=== PATIENT | male | born 1960 | race Caucasian/White ===

== ENCOUNTER 2016-07-24 07:13 | Inpatient (IN) | payer OTHER ==
[~2016-07-24] VITALS: Ht 180 cm; Wt 101.0 kg
[2016-07-24 08:26] LABS: BASOPHIL 0.4 % (0-2); EOSINOPHIL 2.3 % (0-5); HCT 47.5 % (42.0-52.0); HGB 16.3 g/dl (13.2-18.0); LYMPHOCYTE 15.4 % (15-48); MCH 34.5 pg (25.0-31.0); MCHC 34.3 g/dL (32.0-36.0); MCV 100.4 fL (78.0-100.0); MONOCYTE 3.6 % (0-12); MPV 9.4 fL (6.0-9.5); NEUTROPHIL 78.3 % (41-80); PLT 205 K/uL (150-400); RBC 4.73 M/uL (4.70-6.00); RDW 13.5 % (11.5-14.0); WBC 14.2 K/uL (4.0-10.5)
[2016-07-24 08:38] LABS: INR 0.99 (0.9-1.2); PROTHROMBIN TIME 12.7 SECONDS (11.7-14.0); PTT 26.9 SECONDS (23.2-31.4)
[2016-07-24 10:53] LABS: ALBUMIN 4.6 g/dL (3.5-5.0); BILIRUBIN - TOTAL 0.2 mg/dL (0.1-1.0); CREATININE 0.6 mg/dL (0.7-1.2); GLOBULIN (CALCULATION) 2.6 g/dL (2.2-4.2); POTASSIUM 4.5 mmol/L (3.5-5.1); TOTAL PROTEIN 7.2 g/dL (6.4-8.3)
[2016-07-25 06:10] LABS: HCT 38.6 % (42.0-52.0); HGB 12.9 g/dl (13.2-18.0); MCH 33.7 pg (25.0-31.0); MCHC 33.4 g/dL (32.0-36.0); MCV 100.8 fL (78.0-100.0); MPV 9.5 fL (6.0-9.5); RBC 3.83 M/uL (4.70-6.00); RDW 13.3 % (11.5-14.0); WBC 11.8 K/uL (4.0-10.5)
[2016-07-25 07:12] LABS: CREATININE 0.7 mg/dL (0.7-1.2); POTASSIUM 4.1 mmol/L (3.5-5.1)
[2016-07-26 04:07] LABS: HCT 35.8 % (42.0-52.0); HGB 12.1 g/dl (13.2-18.0); MCH 34.2 pg (25.0-31.0); MCHC 33.8 g/dL (32.0-36.0); MCV 101.1 fL (78.0-100.0); MPV 9.2 fL (6.0-9.5); RBC 3.54 M/uL (4.70-6.00); RDW 13.1 % (11.5-14.0); WBC 11.8 K/uL (4.0-10.5)
[2016-07-26 04:46] LABS: CREATININE 0.8 mg/dL (0.7-1.2); POTASSIUM 4.3 mmol/L (3.5-5.1)
[2016-07-27 05:34] LABS: HCT 30.9 % (42.0-52.0); HGB 10.3 g/dl (13.2-18.0); MCH 33.9 pg (25.0-31.0); MCHC 33.3 g/dL (32.0-36.0); MCV 101.6 fL (78.0-100.0); MPV 8.9 fL (6.0-9.5); RBC 3.04 M/uL (4.70-6.00); RDW 12.9 % (11.5-14.0); WBC 8.7 K/uL (4.0-10.5)
[2016-07-27 05:59] LABS: CREATININE 0.7 mg/dL (0.7-1.2); POTASSIUM 4.1 mmol/L (3.5-5.1)
[2016-07-28 07:11] LABS: HCT 31.6 % (42.0-52.0); MCH 34.5 pg (25.0-31.0); MCHC 34.8 g/dL (32.0-36.0); MCV 99.1 fL (78.0-100.0); MPV 9.3 fL (6.0-9.5); RBC 3.19 M/uL (4.70-6.00); RDW 12.6 % (11.5-14.0); WBC 9.6 K/uL (4.0-10.5)
[2016-10-09] MEDS ORDERED: ASPIRIN325 MG PO (10:51)
[2016-10-09] MEDS ORDERED: PRINIVIL20 MG PO (10:51)
[2016-10-09] MEDS ORDERED: K-DUR20 MEQ PO (10:51)
[2016-10-09] MEDS ORDERED: COREG 6.25MG6.25 MG PO (10:51)
[2016-10-09] MEDS ORDERED: PRAVACHOL40 MG PO (10:51)
== END 2016-07-28 19:07 | disposition home health service (06) | DRG 494 ==
LOC: FER 07:13 → FMS 09:19
PROVIDERS: Emergency Medicine; Internal Medicine Adolescent Medicine; Legal Medicine; ADMIT Internal Medicine
PROC: 0QSJ04Z Reposition Right Fibula with Internal Fixation Device, Open Approach (ICD-10-PCS; principal; 2016-07-25 14:00)
PROC: 0QS Lower Bones, Reposition (ICD-10-PCS; 2016-07-25 14:00)
DX: S82.871A Displaced pilon fracture of right tibia, initial encounter for closed fracture (principal); I10 Essential (primary) hypertension; V48.4XXA Person boarding or alighting a car injured in noncollision transport accident, initial encounter; S82.451A Displaced comminuted fracture of shaft of right fibula, initial encounter for closed fracture; Y93.89 Activity, other specified; Y92.9 Unspecified place or not applicable; Y99.8 Other external cause status; I25.10 Atherosclerotic heart disease of native coronary artery without angina pectoris; E78.5 Hyperlipidemia, unspecified; J44.9 Chronic obstructive pulmonary disease, unspecified; M21.371 Foot drop, right foot; I73.9 Peripheral vascular disease, unspecified; F17.210 Nicotine dependence, cigarettes, uncomplicated; I25.5 Ischemic cardiomyopathy; I25.118 Atherosclerotic heart disease of native coronary artery with other forms of angina pectoris; N40.0 Benign prostatic hyperplasia without lower urinary tract symptoms; Z88.5 Allergy status to narcotic agent; I25.2 Old myocardial infarction; Z95.1 Presence of aortocoronary bypass graft; Z79.82 Long term (current) use of aspirin
CPT/HCPCS: 36415; 71010; 73590; 73600; 73610; 76000; 80048; 80053; 80202; 85025; 85610; 85730; 90471; 90715; 93005; 94010; 94762; 97110; 97163; 97167; 97530; 97530-GP; 97535; C1713; J0690; J0697; J1170; J2270; J2704; J2795; J3010; J3370